=== PATIENT | female | born 1985 ===

== ENCOUNTER 2017-07-30 12:28 | Emergency (ER) | payer MEDICARE, MEDICAID ==
[2017-07-30 12:53] VITALS: BMI 42.0
[2017-07-30 12:57] VITALS: BP 127/65; PULSE 111; RESP 24; TEMP 99.3; O2SAT 95
[2017-07-30] MEDS ORDERED: Alum-Mag Hydrox-Simethicone Susp (30 mL) PO ONE (13:11)
--- NOTE | 2017-07-30 13:13 | C.PDOC ---
History Of Present Illness 32 year old F with history of chronic back pain presented with complaint of low back pain. She denies any recent trauma. Pt states she feels better with rest. She denies any urinary or bowel complaint. She used to go for physical therapy but she hasn't been for a long time. Time Seen by Provider: 07/30/17 13:02 Chief Complaint (Nursing): Back Pain History Per: Patient History/Exam Limitations: other (morbidly obese) Onset/Duration Of Symptoms: Days (2 days) Current Symptoms Are (Timing): Still Present Quality Of Discomfort: Aching Pain Scale Rating Of: 10 Previous Symptoms: Back Pain Associated Symptoms: None Exacerbating Factor(s): Turning, Movement, Sitting Recent travel outside of the [place]: No Additional History Per: Patient Past Medical History Vital Signs: Last Vital Signs Temp 99.3 F 07/30/17 12:53 Pulse 111 H 07/30/17 12:53 Resp 24 07/30/17 12:53 BP 127/65 07/30/17 12:53 Pulse Ox 95 07/30/17 13:25 - Medical History PMH: Back Problems, Bipolar Disorder, HTN, Hypothyroidism Family History: States: No Known Family Hx - Social History Hx Alcohol Use: No Hx Substance Use: No - Immunization History Hx Tetanus Toxoid Vaccination: No Hx Influenza Vaccination: No Hx Pneumococcal Vaccination: No Review Of Systems Except As Marked, All Systems Reviewed And Found Negative. Cardiovascular: Negative for: Chest Pain, Palpitations, Light Headedness Respiratory: Negative for: Wheezing Musculoskeletal: Positive for: Back Pain Neurological: Negative for: Weakness, Numbness Physical Exam - Physical Exam Appears: Well, No Acute Distress, Other (morbidly obese) Skin: Normal Color Eye(s): bilateral: Normal Inspection, PERRL, EOMI Ear(s): Bilateral: Normal Tongue: Normal Appearing ED Course And Treatment O2 Sat by Pulse Oximetry: 95 Medical Decision Making Medical Decision Makin32 year old F presented with complaint of low back pain MSK pain plan: check ua pain control reassess The pt is feeling better and ua is negative. will d/c pt with pain medication and muscle relaxer. Disposition - Disposition Disposition: HOME/ ROUTINE Disposition Time: 14:21 Condition: IMPROVED Prescriptions: Cyclobenzaprine [Cyclobenzaprine HCl] 10 mg PO Q8 5 Days #15 tab Ibuprofen [Motrin Ib] 600 mg PO Q6 5 Days #20 tablet Forms: [employer] (Kazakh) - Clinical Impression Clinical Impression: Back pain
[2017-07-30] MEDS ORDERED: Aluminum Hydroxide/Magnesium Hydroxide Susp (30 mL) ONE (13:24)
[2017-07-30 13:42] LABS: SQUAMOUS EPITHIAL 1 /hpf (0-5); URINE BILIRUBIN NEGATIVE (NEGATIVE); URINE BLOOD 2+ (NEGATIVE); URINE CLARITY Clear (Clear); URINE COLOR Straw (YELLOW); URINE GLUCOSE (UA) 3+ mg/dL (Normal); URINE LEUKOCYTE ESTERASE NEG Leu/uL (Negative); URINE PROTEIN NEGATIVE (NEGATIVE); URINE UROBILINOGEN NORMAL mg/dL (0.2-1.0)
== END 2017-07-30 14:23 | disposition home or self-care (01) ==
LOC: C.ER 12:28
DX: M54.5 Low back pain (principal)

== ENCOUNTER 2018-03-11 13:13 | Emergency (ER) | payer OTHER ==
[2018-03-11 13:32] VITALS: BMI 56.0
[2018-03-11 13:34] VITALS: BP 136/87; PULSE 103; RESP 20; TEMP 98.1; O2SAT 95
--- NOTE | 2018-03-11 13:49 | C.PDOC ---
History Of Present Illness 33 y/o female with a PMHx of bipolar disorder presents to the ED requesting Rx for blood thinners, as she states she is diabetic. Patient states she believes she needs blood thinners because her father was on blood thinners. Reports having heavy periods and is on control, at times she sees clots, prompting her to seek blood thinners. Denies any abdominal pain, fevers, chills, vaginal discharge, dysuria, or diarrhea. Also denies chest pain, SOB, leg pain or swelling. Time Seen by Provider: 03/11/18 13:21 Chief Complaint (Nursing): Female Genitourinary History Per: Patient History/Exam Limitations: no limitations Onset/Duration Of Symptoms: Intermittent Episodes Current Symptoms Are (Timing): Gone Past Medical History Reviewed: Historical Data, Nursing Documentation, Vital Signs Vital Signs: Last Vital Signs Temp 98.1 F 03/11/18 13:25 Pulse 103 H 03/11/18 13:25 Resp 20 03/11/18 13:25 BP 136/87 03/11/18 13:25 Pulse Ox 95 03/11/18 13:25 - Medical History PMH: Back Problems, Bipolar Disorder, HTN, Hypothyroidism Family History: States: No Known Family Hx - Social History Hx Alcohol Use: No Hx Substance Use: No - Immunization History Hx Tetanus Toxoid Vaccination: No Hx Influenza Vaccination: No Hx Pneumococcal Vaccination: No Review Of Systems Except As Marked, All Systems Reviewed And Found Negative. Constitutional: Negative for: Fever, Chills Eyes: Negative for: Vision Change Cardiovascular: Negative for: Chest Pain, Light Headedness Respiratory: Negative for: Shortness of Breath Gastrointestinal: Negative for: Nausea, Vomiting, Abdominal Pain Genitourinary: Positive for: Vaginal Bleeding (Heavy menstrual period). Negative for: Dysuria, Frequency, Vaginal Discharge Skin: Negative for: Lesions, Bruising Neurological: Negative for: Weakness, Numbness, Dizziness Physical Exam - Physical Exam Appears: Non-toxic, No Acute Distress, Other (Morbidly obese) Skin: Warm, Dry Head: Atraumatic, Normacephalic Eye(s): bilateral: Normal Inspection, PERRL, EOMI Oral Mucosa: Moist Neck: Normal ROM Chest: Symmetrical Cardiovascular: Rhythm Regular, No Murmur Respiratory: Normal Breath Sounds, No Accessory Muscle Use Gastrointestinal/Abdominal: Soft, No Tenderness, No Distention Back: Normal Inspection Extremity: Bilateral: Atraumatic, Normal Color And Temperature, Normal ROM Neurological/Psych: Oriented x3, Normal Speech Gait: Steady ED Course And Treatment - Laboratory Results Result Diagrams: 03/11/18 14:22 03/11/18 14:22 O2 Sat by Pulse Oximetry: 95 (RA) Pulse Ox Interpretation: Normal Medical Decision Making Medical Decision Making: Impression: 33 y/o female requesting blood thinners. also hevy periods. Plan: Patient denies any calf pain/tenderness, chest pain, or SOB at this time. Only complaint is heavy menstrual bleeding. Will order blood work with coag panel. h/h stable non specfiic leukocytosis. no abd pain, urinary symptoms cardio pulm complaints. reports had neg ob us last month. already started on oral contrac eptives. no indication to repeat emergent abd soft no ttp updated pmd dr martins. n o h/o of dvt, pe, or any indication for blood thinners. stable for dc. Disposition - Disposition Referrals: Diana Garcia DO [Staff Provider] - Disposition: HOME/ ROUTINE Disposition Time: 14:00 Condition: STABLE Additional Instructions: please follow up with obgyn as an outpatient and your pmd. please discuss all results with your doctor/clinic. return to any er with worsening symptoms or concerns. you will need further diagnostic testing as an outpatient. return to any er with any concern. Instructions: Heavy Periods (DC) Forms: [employer] (Croatian) - Clinical Impression Clinical Impression: Vaginal bleeding, Medication requested by patient but not prescribed or administered - Scribe Statement The provider has reviewed the documentation as recorded by the Gilmer Lopez Provider Attestation: All medical record entries made by the Nellieibmichael were at my direction and personally dictated by me. I have reviewed the chart and agree that the record accurately reflects my personal performance of the history, physical exam, medical decision making, and the department course for this patient. I have also personally directed, reviewed, and agree with the discharge instructions and d isposition.
[2018-03-11 14:30] LABS: HEMOGLOBIN 11.6 g/dL (11.0-16.0); MEAN CORPUSCULAR HEMOGLOBIN 32.6 pg (27.0-31.0); MEAN CORPUSCULAR HGB CONC 32.9 g/dL (33.0-37.0); MEAN PLATELET VOLUME 9.1 fL (7.2-11.7); RBC 3.57 Mil/uL (3.80-5.20); RED CELL DISTRIBUTION WIDTH 14.2 % (11.5-14.5); WHITE BLOOD COUNT 12.6 K/uL (4.8-10.8)
[2018-03-11 14:39] LABS: INR 1.1; PROTHROMBIN TIME 11.8 SECONDS (9.7-12.2)
[2018-03-11 14:45] LABS: ALB/GLOB RATIO 1.4 (1.0-2.1); ALBUMIN 4.1 g/dL (3.5-5.0); ALT/SGPT 63 U/L (9-52); AST/SGOT 66 U/L (14-36); BLOOD UREA NITROGEN 13 mg/dL (7-17); CALCIUM 8.7 mg/dl (8.6-10.4); GFR NON-AFRICAN AMERICAN > 60
== END 2018-03-11 17:00 | disposition home or self-care (01) ==
LOC: C.ER 13:13
DX: N93.9 Abnormal uterine and vaginal bleeding, unspecified (principal); I10 Essential (primary) hypertension; E03.9 Hypothyroidism, unspecified